=== PATIENT | female | born 1960 | race Hispanic/Latino ===

== ENCOUNTER 2017-05-21 14:42 | Emergency (ER) | payer SELFPAY ==
[2017-05-21] MEDS ORDERED: ONDANSETRON ODT 4 MG TAB.RAPDIS ONE (15:32)
--- NOTE | 2017-05-21 16:02 | RADIOLOGY REPORT ---
Three views of the right shoulder demonstrate no displaced fracture or dislocation. Joints appear unremarkable. IMPRESSION: No displaced injury. If clinically indicated, further evaluation and/or follow-up may be of benefit. ADI
--- NOTE | 2017-05-21 16:41 | ER NURSING DOCUMENTATION ---
Nurse's Notes [place] Name:Henrietta Del Castillo Age:57 yrs Sex:Female :1960 Arrival Date:05/21/2017 Time:14:42 Bed3 Private MD: Diagnosis:Shoulder Contusion Presentation: 05/21 14:59 Presenting complaint: Patient states: RIGHT SHOULDER PAIN AFTER FALLING AT WORK. NO lc LOC, NECK PAIN OR OTHER INJURY. Transition of care: patient was not received from another setting of care. Transition of care: patient was not received from another setting of care. Notified ED Physician of patient's arrival and CC. 14:59 Acuity: MANJULA 3 lc 14:59 Method Of Arrival: Private Vehicle Triage Assessment: 15:01 General: Appears in no apparent distress, Behavior is appropriate for age, cooperative. lc Pain: Complains of pain in anterior aspect of right shoulder and left arm Pain At worst was 5 out of 10 on a pain scale. Quality of pain is described as dull, Pain began 1 hour ago Aggravated by increased activity. Neuro: Level of Consciousness is awake, alert, Oriented to person, place, time, event. Derm: Skin is pink, warm & dry. Musculoskeletal: Circulation, motion, and sensation intact Capillary refill < 3 seconds Range of motion intact in right shoulder. Injury Description: Skin tear R/O FX. Historical: - Allergies: No known drug Allergies; - Home Meds: 1. Metoprolol Tartrate Oral - PMHx: Hypertension; - PSHx: Cholecysectomy; - Tetanus: < 10 years. - Ebola Screening: : Patient denies travel to an Ebola-affected area in the 21 days before illness onset. No symptoms or risks identified at this time. . - Immunization history: Flu Vaccine unknown. - Social history: Smoking status: Patient uses tobacco products, current every day smoker. Screenin:07 Infectious Disease Risk None. Abuse screen: Denies threats or abuse. Denies injuries lc from another. Abuse screen: Denies threats or abuse. Nutritional screening: No deficits noted. Assessment: 15:07 See Triage Assessment done by same RN. Vital Signs: 15:03 BP 124 / 63; Pulse 78; Resp 16; Temp 98; Pulse Ox 93% on R/A; Weight 58.97 kg; Height 5 lc ft. (152.40 cm); Pain 5/10; 16:40 Pulse 76; Resp 16; Pulse Ox 92% on R/A; Pain 2/10; lc 15:03 Body Mass Index 25.39 (58.97 kg, 152.40 cm) ED Course: 14:43 Patient arrived in ED. dp 14:49 Bernard Patel MD is Attending Physician. tl1 14:59 Jaja Manzano, RN is Primary Nurse. lc 14:59 Triage completed. lc 15:07 Valuables Remains with patient Patient has correct armband on for positive lc identification. Placed in gown. Bed in low position. Call light in reach. Adult w/ patient. Ice pack to injury. 15:08 Patient moved to radiology. tt 15:15 Patient moved back from radiology. tt 16:08 Enoc Rai MD, Sarbjit Culver DO is Referral Physician. tl1 16:39 Sling & swathe to right arm. lc Administered Medications: 15:21 Drug: [place] (7.5 mg-325 mg) 1 tabs; Route: PO; lc 16:39 Follow up: Response: Pain is decreased 15:21 Drug: Zofran 4 mg; Route: IVP; Infused Over: 2 mins; Site: right antecubital; lc 16:39 Follow up: Response: Nausea is decreased Outcome: 16:08 Discharge ordered by . tl1 16:40 Discharged to home ambulatory, with family. 16:40 Condition: good 16:40 Discharge Assessment: Patient awake, alert and oriented x 3. No cognitive and/or functional deficits noted. Patient verbalized understanding of disposition instructions. 16:40 Discharge instructions given to patient, Instructed on discharge instructions, follow up and referral plans. medication usage, [facility] ROM TO R SHOULDER Demonstrated understanding of instructions, medications, Prescriptions given X 2. 16:41 Patient left the ED. 05/22 10:22 Discharge F/U Call: Spoke with: patient. Are you having any pain? yes. How are you lc managing your pain? Patient is taking medication: GETTING RX THIS AM Have you filled your prescriptions? yes. Did your discharge instructions answer all of your questions? yes Have you made a f/u appointment? yes Overall Care on a scale of 1-10 with 10 being the best care, you rate our care as: Other comments: ROM ENCOURAGED Signatures: Jaja Manzano, RN RN Sera Stephens Tom, MD MD tl1 Deya Phelps dp
--- NOTE | 2017-05-23 16:41 | ER PHYSICIAN DOCUMENTATION ---
Physician Documentation [facility] Name:Henrietta Del Castillo Age:57 yrs Sex:Female :1960 Arrival Date:05/21/2017 Time:14:42 Bed3 Private MD: Bernard Castano Disposition: 05/23 06:56 Chart complete. tl1 Disposition: 05/21/17 16:08 Discharged to Home/Self Care. Impression: Shoulder Contusion. - Condition is Good. - Discharge Instructions: SHOULDER CONTUSION. - Prescriptions for [place] 5- 325 mg Oral - take 1 tablet by ORAL route every 6 hours As needed; 12 tablet. Zofran 4 mg Oral Tablet - take 1-2 tablet by ORAL route every 4-6 hours As needed; 10 tablet. - Medical Reconciliation form form. - Follow up: Enoc Rai MD, Sarbjit Culver DO; When: 7 - 10 days; Reason: Recheck today's complaints, Continuance of care. - Problem is new. - Symptoms have improved. HPI: 05/21 15:30 This 57 yrs old Female presents to ER via Private Vehicle with complaints of tl1 Shoulder Injury - R. 15:30 The patient or guardian complains of an injury, pain. right shoulder The complaint tl1 affects the patient's dominant side (right). 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 The patient reports no obvious deformity. Onset: The symptom(s)/episode began/occurred suddenly, just prior to arrival. Historical: - Allergies: No known drug Allergies; - Home Meds: 1. Metoprolol Tartrate Oral - PMHx: Hypertension; - PSHx: Cholecysectomy; - Tetanus: < 10 years. - Ebola Screening: : Patient denies travel to an Ebola-affected area in the 21 days before illness onset. No symptoms or risks identified at this time. . - Immunization history: Flu Vaccine unknown. - Social history: Smoking status: Patient uses tobacco products, current every day smoker. ROS: 15:35 MS/extremity: Positive for injury or acute deformity. tl1 15:35 All other systems are negative. Exam: 15:35 Constitutional: This is a well developed, well nourished patient who is awake, alert, tl1 and in no acute distress. 15:35 Cardiovascular: Rate: normal. 15:35 Respiratory: Respirations: normal. 15:35 Musculoskeletal/extremity: Extremities: grossly normal except: noted in the anterior aspect of right shoulder: Circulation is intact in all extremities. Sensation intact. Joints: All joints are normal except the right shoulder displays TTP over anterior deltoid, especially coracoid process. No bruising or swelling. FROM with some discomfort at the end of the ROM. Empty can test negative. Drop arm test negative. No pain with external or internal rotation against resistance. Mild discomfort with abduction against resistance. Clavicle and AC joint both NTTP.. Vital Signs: 15:03 BP 124 / 63; Pulse 78; Resp 16; Temp 98; Pulse Ox 93% on R/A; Weight 58.97 kg; Height 5 lc ft. (152.40 cm); Pain 5/10; 16:40 Pulse 76; Resp 16; Pulse Ox 92% on R/A; Pain 2/10; lc 15:03 Body Mass Index 25.39 (58.97 kg, 152.40 cm) lc MDM: 14:49 Patient medically screened. tl1 16:00 Differential diagnosis: humeral head fracture, CONTUSION, ROTATOR CUFF OR LABRAL TEAR. tl1 Data reviewed: vital signs, nurses notes, radiologic studies, plain films, and as a result, I will discharge patient, Provide sling. Test interpretation: by ED physician or midlevel provider: plain radiologic studies. Counseling: I had a detailed discussion with the patient and/or guardian regarding: the historical points, exam findings, and any diagnostic results supporting the discharge/admit diagnosis, radiology results, the need for outpatient follow up, for a referral to a specialist, a orthopedic surgeon, to return to the emergency department if symptoms worsen or persist or if there are any questions or concerns that arise at home. 05/21 16:33 Order name: SHOULDER; 2V+ [place] [id number]; Complete Time: 06:45 EDMS 05/23 06:44 Interpretation: Normal: No fracture or malalignment, see radiologist report. tl1 05/21 16:11 Order name: ORTHO: Arm Sling; Complete Time: 16:39 tl1 Dispensed Medications: 15:21 Drug: [place] (7.5 mg-325 mg) 1 tabs; Route: PO; lc 16:39 Follow up: Response: Pain is decreased lc 15:21 Drug: Zofran 4 mg; Route: IVP; Infused Over: 2 mins; Site: right antecubital; lc 16:39 Follow up: Response: Nausea is decreased lc Signatures: Jaja Manzano RN RN Bernard Blair MD MD tl1
== END 2017-05-21 16:41 | disposition home or self-care (01) ==
LOC: ER 14:42
DX: S40.011A Contusion of right shoulder, initial encounter (principal); W18.2XXA Fall in (into) shower or empty bathtub, initial encounter; Y92.59 Other trade areas as the place of occurrence of the external cause; Y93.E9 Activity, other interior property and clothing maintenance; Y99.0 Civilian activity done for income or pay
CPT/HCPCS: 96374; 99284